=== PATIENT | female | born 1930 | race African-American/Black ===

== ENCOUNTER → 2016-04-19 | Outpatient (CLI) | payer OTHER ==
[2016-02-23 15:00] VITALS: BP 138/70
[~2016-04-19] MED LIST: ALLO100T PO; AMIO200T2 PO; AMLO10TA2 PO; ASPI-39 PO; ATOR40TA59 PO; CHOL10003 PO; CYCL10TA2 PO; DOXA2TAB2 PO; HYDR-971 PO; LISI10TA2 PO; LISI1TAB7 PO; SIMV20TA3 PO
--- NOTE | 2016-04-19 11:18 | RAD ---
Exam performed: CT cervical spine without contrast. History: Follow-up C1 fracture. Date of service: 04/19/16. Comparison: CT cervical spine from 02/20/16. Technique: Contiguous helical acquisitions are obtained through the cervical spine without IV contrast. Sagittal and coronal reformatted images are obtained and reviewed. Findings: Fractures involving the anterior and posterior arch of C1 redemonstrated. The degree of distraction appears unchanged at the fracture margins are corticated. Offset of C1 on C2 on coronal plane remains unchanged. Straightening of the cervical curvature. Vertebral body heights are maintained. There is narrowing of several intervertebral disc spaces with endplate sclerosis and arthritic spurring. No acute compression fracture. There is no prevertebral soft tissue swelling. Multilevel bilateral apophyseal hypertrophic changes are noted. The airway is preserved. Atheromatous calcification of the carotid arteries. The thyroid gland is heterogeneous containing bilateral nodules. Impression: 1. Distracted Fracture ring of C1 including both anterior and posterior arches with sclerosis at the fracture margins appears unchanged. 2. Spondylotic and multilevel disc degenerative changes are redemonstrated. PQRS Compliance Statement: One or more of the following individualized dose reduction techniques were utilized for this examination: 1. Automated exposure control 2. Adjustment of the mA and/or kV according to patient size 3. Use of iterative reconstruction technique
== END | disposition home or self-care (01) ==
LOC: CT 09:56
PROVIDERS: ATTEND Neurological Surgery
DX: S12.9XXD Fracture of neck, unspecified, subsequent encounter (principal); E04.1 Nontoxic single thyroid nodule
CPT/HCPCS: 72125

== ENCOUNTER → 2016-07-03 | Outpatient (CLI) | payer OTHER ==
[~2016-07-03] VITALS: Ht 160 cm; Wt 75.7 kg
[~2016-07-03] MED LIST changes: +BUPIVACAINE 0.5% 50 ML VIAL. INJ ONE; +IOHEXOL 300 MG/ML 50 ML VIAL. IJ ONE; +methylPREDNISolone ACETATE 80 MG/ML VIAL. IM ONE
[2016-07-03 13:10] VITALS: BP 146/55
--- NOTE | 2016-07-03 14:52 | RAD ---
Fluoroscopically guided right hip joint injection, 07/03/2016: History: Right hip pain, arthritis Under local anesthesia, aseptic conditions and fluoroscopic guidance a 22-gauge spinal needle was passed into the right hip joint via an anterior approach. A small amount of iodinated contrast material was injected to confirm intra-articular positioning following which 80 mg of Depo-Medrol mixed with 4 cc of 0.5% Sensorcaine was injected into the joint as requested. The needle was then removed and hemostasis obtained. A single fluoroscopic spot image was recorded. 0.6 minutes of fluoroscopy time was utilized. The patient tolerated the procedure well and left the department in good condition.
== END | disposition home or self-care (01) ==
LOC: RAD 12:35
PROVIDERS: ATTEND Nurse Practitioner Gerontology
DX: M16.11 Unilateral primary osteoarthritis, right hip (principal)
CPT/HCPCS: 20605; 77002; J1040; J3490; Q9967

== ENCOUNTER 2016-08-07 07:00 | Emergency (ER) | payer OTHER ==
[~2016-08-07] VITALS: Ht 157.5 cm; Wt 75.7 kg
[~2016-08-07 07:00] MED LIST changes: -BUPIVACAINE 0.5% 50 ML VIAL. INJ ONE; -IOHEXOL 300 MG/ML 50 ML VIAL. IJ ONE; -methylPREDNISolone ACETATE 80 MG/ML VIAL. IM ONE
[2016-08-07 07:30] VITALS: BP 166/74
--- NOTE | 2016-08-07 07:35 | PHYS DOC ---
Past Medical History Past Medical History: A-Fib, High Cholesterol, Heart Disease, Hypertension, Other Additional Past Medical Histor: gout Past Surgical History: No Surgical History Alcohol Use: None Drug Use: None Adult General Chief Complaint Chief Complaint: COUGH HPI HPI Patient is a 85 year old female who presents with cough, rhinorrhea, postnasal drip, nasal congestion and chills/sweats starting yesterday and gradually worsening. Notes slight dyspnea as well. She denies pain, measured fever, hemoptysis, leg pain or swelling, orthopnea, headache, palpitations. Review of Systems Review of Systems Constitutional: Has fever and chills [] Eyes: Denies change in visual acuity, redness, or eye pain [] HENT: Denies sore throat [] Respiratory: Has cough and shortness of breath [] Cardiovascular: No additional information not addressed in HPI [] GI: Denies abdominal pain, nausea, vomiting, bloody stools or diarrhea [] : Denies dysuria or hematuria [] Musculoskeletal: Denies back pain or joint pain [] Integument: Denies rash or skin lesions [] Neurologic: Denies headache, focal weakness or sensory changes [] Endocrine: Denies polyuria or polydipsia [] Allergies Allergies Allergies Coded Allergies Type Severity Reaction Last Updated Verified No Known Drug Allergies 07/03/16 No Physical Exam Physical Exam Constitutional: Well developed, well nourished, no acute distress, non-toxic appearance. [] HENT: Normocephalic, atraumatic, bilateral external ears normal, oropharynx moist, no oral exudates, nose normal. [] Eyes: PERRLA, EOMI, conjunctiva normal, no discharge. [] Neck: Normal range of motion, supple, no stridor. [] Cardiovascular:Heart rate regular rhythm [] Lungs & Thorax: Bilateral breath sounds clear to auscultation [] Abdomen: Bowel sounds normal, soft, no tenderness. [] Skin: Warm, dry, no erythema, no rash. [] Back: Normal ROM. [] Extremities: No tenderness, ROM intact, no edema. [] Neurologic: Alert and oriented X 3, normal motor function, normal sensory function, no focal deficits noted. [] Psychologic: Affect normal, judgement normal, mood normal. [] Current Patient Data Vital Signs Vital Signs Date Time Temp Pulse Resp B/P (MAP) Pulse Ox O2 Delivery O2 Flow Rate FiO2 08/07/16 07:19 98.7 77 16 201/86 (124) 94 Room Air 98.7 Radiology/Procedures Radiology/Procedures Chest xray as interpreted by me with no acute cardiopulmonary disease process Course & Med Decision Making Course & Med Decision Making Pertinent Labs and Imaging studies reviewed. (See chart for details) Discussed supportive care. Return precautions given. She understands and agrees with plan. Dragon Disclaimer Dragon Disclaimer This electronic medical record was generated, in whole or in part, using a voice recognition dictation system. Departure Departure Impression: Primary Impression: Upper respiratory infection Disposition: HOME, SELF-CARE Condition: STABLE Referrals: MAKI JARQUIN MD (PCP) Patient Instructions: Upper Respiratory Infection, Adult, [id number] Additional Instructions: Use honey as needed for cough. Follow up with your primary care doctor within 1 week. Return for any concerns. Problem Qualifiers Primary Impression: Upper respiratory infection URI type: unspecified viral URI Qualified Codes: J06.9 - Acute upper respiratory infection, unspecified; B97.89 - Other viral agents as the cause of diseases classified elsewhere Kris STEIN MD August 07, 2016 07:35
--- NOTE | 2016-08-07 07:46 | RAD ---
Chest, 2 views, 08/07/2016: History: Cough and chills Comparison is made to a study from 02/20/2016. The heart is mildly enlarged. There is calcific plaquing of the aorta. The pulmonary vascularity is normal. There are scattered parenchymal scars. No acute infiltrate is seen. There is no evidence of pleural fluid. The bony structures are demineralized. There are moderate spurs in the spine. IMPRESSION: 1. Mild cardiomegaly and aortic atherosclerosis. 2. No acute cardiopulmonary abnormality is detected.
== END 2016-08-07 08:01 | disposition home or self-care (01) ==
LOC: ER 07:00
DX: J06.9 Acute upper respiratory infection, unspecified (principal); I48.91 Unspecified atrial fibrillation; E78.00 Pure hypercholesterolemia, unspecified; M10.9 Gout, unspecified; I11.9 Hypertensive heart disease without heart failure
CPT/HCPCS: 71020; 99284-25

== ENCOUNTER 2017-09-16 14:51 | Emergency (ER) | payer OTHER ==
[2017-09-16] MEDS: diazePAM 5 MG TABLET PO (16:11)
[2017-09-16] MEDS: oxyCODONE/APAP 5/325 1 TAB TABLET PO (16:12)
== END 2017-09-16 16:35 | disposition home or self-care (01) ==
LOC: ER 14:51
DX: M19.011 Primary osteoarthritis, right shoulder (principal); I11.9 Hypertensive heart disease without heart failure; E78.00 Pure hypercholesterolemia, unspecified; I48.91 Unspecified atrial fibrillation; M10.9 Gout, unspecified
CPT/HCPCS: 73030; 99284